=== PATIENT | male | born 1965 | race African-American/Black ===

== ENCOUNTER 2023-04-05 05:32 | Emergency (ER) | payer OTHER ==
[~2023-04-05] VITALS: Ht 182.9 cm; Wt 105.0 kg
[2023-04-05 05:51] VITALS: O2SAT 98
[2023-04-05 06:23] LABS: BASOPHILS % 0.7 % (0.0-2.0); EOSINOPHILS % 0.3 % (0.0-5.0); HEMATOCRIT. 49.8 % (42.0-52.0); HEMOGLOBIN. 16.5 g/dL (14.0-18.0); LYMPHOCYTES % 22.9 % (20.0-50.0); MEAN CORPUSCULAR HEMOGLOBIN 30.1 pg (28.0-32.0); MEAN CORPUSCULAR HGB CONC 33.1 g/dL (31.0-37.0); MONOCYTES % 14.9 % (2.0-8.0); NEUTROPHILS % 61.2 % (40.0-76.0); PLATELET 107 x1000/uL (130-400); RED BLOOD CELL COUNT 5.47 mill/uL (4.7-6.1); RED CELL DISTRIBUTION WIDTH 15.5 % (11.6-14.6); WHITE BLOOD COUNT 7.2 x1000/uL (4.5-11.0)
[2023-04-05 08:54] LABS: ALANINE AMINOTRANSFERASE 10 IU/L (10-49); ALBUMIN 4.3 g/dL (3.2-4.8); ASPARTATE AMINOTRANSFERASE 27 IU/L (<34); BILIRUBIN TOTAL 0.3 mg/dL (0.1-1.0); CALCIUM 9.3 mg/dL (8.7-10.4); CARBON DIOXIDE 20 mEq/L (21-32); CHLORIDE 100 mEq/L (98-107); CREATININE 2.7 mg/dL (0.6-1.3); GLUCOSE 188 mg/dL (70-105); POTASSIUM 3.5 mEq/L (3.5-5.1); PROTEIN TOTAL 9.3 g/dL (6.0-8.3); SODIUM 135 mEq/L (136-145); TROPONIN I HIGH SENSITIVITY 44 ng/L (3.0-53); UREA NITROGEN BLOOD 46 mg/dL (9-23)
[2023-04-05 10:08] VITALS: TEMP 98.1
[2023-04-05] MEDS ORDERED: SODIUM CHLORIDE 0.9% 1,000 ML IV ONE (10:45)
[2023-04-05] MEDS ORDERED: ASPIRIN 325MG EC TABLET PO ONE (10:45)
[2023-04-05 12:39] VITALS: BP 121/68; PULSE 68; RESP 19
== END 2023-04-05 12:49 | disposition short-term general hospital (02) ==
LOC: EDBD 05:32 → ER 05:32
DX: N17.9 Acute kidney failure, unspecified (principal); I10 Essential (primary) hypertension
CPT/HCPCS: 99285; 71045; 80053; 83880; 85025; 84484; 36415; 93005; J7030

== ENCOUNTER 2024-09-15 15:14 | Inpatient (IN) | payer OTHER ==
[~2024-09-15] VITALS: Ht 177.8 cm; Wt 90.7 kg
[2024-09-15] MEDS: SODIUM CHLORIDE 0.9% 1,000 ML IV ONE (16:05)
[2024-09-15] MEDS: MORPHINE SULFATE 4 MG/ML INJ (FOR IV/IM USE) IV STA (16:05)
[2024-09-15 16:26] LABS: BASOPHILS % 0.8 % (0.0-2.0); EOSINOPHILS % 0.3 % (0.0-5.0); HEMATOCRIT. 50.3 % (42.0-52.0); HEMOGLOBIN. 16.7 g/dL (14.0-18.0); LYMPHOCYTES % 13.9 % (20.0-50.0); MEAN PLATELET VOLUME 9.4 fl (7.4-10.4); MONOCYTES % 3.7 % (2.0-8.0); NEUTROPHILS % 81.3 % (40.0-76.0); PLATELET 193 x1000/uL (130-400); RED BLOOD CELL COUNT 5.64 mill/uL (4.7-6.1); RED CELL DISTRIBUTION WIDTH 14.1 % (11.6-14.6)
[2024-09-15 16:37] LABS: INR 1.1
[2024-09-15 16:42] LABS: CREATININE 1.9 mg/dL (0.6-1.3); ETHANOL BLOOD < 10 mg/dL (<10); UREA NITROGEN BLOOD 20 mg/dL (9-23)
[2024-09-15 16:46] LABS: TROPONIN I HIGH SENSITIVITY 63 ng/L (3.0-53)
[2024-09-15] MEDS: HYDRALAZINE 20MG/ML VIAL IV ONE (18:19)
[2024-09-15] MEDS: NITROGLYCERIN OINT 1GM/INCH UDPKT TD ONE (18:24)
[2024-09-15] MEDS: ASPIRIN 325MG TABLET PO ONE (20:03)
[2024-09-15] MEDS ORDERED: IPRATROPIUM/ALBUTEROL 0.5-3(2.5)MG/3ML NEB HHN PRN (20:15)
[2024-09-15] MEDS ORDERED: MAGNESIUM/ALUMINUM HYDROXIDE/SIMETHICONE 30ML UDC PO PRN (20:15)
[2024-09-15] MEDS ORDERED: ACETAMINOPHEN 325MG TABLET PO PRN ×2 (20:15)
[2024-09-15] MEDS ORDERED: ONDANSETRON HCL 4MG/2ML INJ IV PRN (20:15)
[2024-09-15] MEDS ORDERED: DOCUSATE SODIUM 100MG CAPSULE PO PRN (20:15)
[2024-09-15] MEDS ORDERED: GUAIFENESIN 200MG/10ML SUGAR FREE UDC PO PRN (20:15)
[2024-09-15] MEDS ORDERED: DIPHENHYDRAMINE 50MG/ML VIAL IV PRN (20:15)
[2024-09-15 20:30] VITALS: BP 149/62; PULSE 72; RESP 20; TEMP 37.1; O2SAT 98
[2024-09-15 21:06] LABS: TROPONIN I HIGH SENSITIVITY 164 ng/L (3.0-53)
[2024-09-15 21:16] LABS: PHOSPHORUS 3.3 mg/dL (2.5-4.9)
[2024-09-15] MEDS: AMLODIPINE 5MG TABLET PO SCH (22:26)
[2024-09-15 22:27] LABS: LACTIC ACID 2.1 mmol/L (0.4-2.0)
[2024-09-15] MEDS: SODIUM CHLORIDE 0.9% 1,000 ML IV SCH (22:29)
[2024-09-15 23:36] VITALS: BP 145/76; PULSE 80; RESP 18; TEMP 36.7
[2024-09-16] VITALS: BP 151/98; PULSE 89; RESP 19; TEMP 36.1; O2SAT 89
[2024-09-16 01:56] LABS: TROPONIN I HIGH SENSITIVITY 282 ng/L (3.0-53)
[2024-09-16 04:00] VITALS: BP 142/83; PULSE 78; RESP 19; TEMP 36.1; O2SAT 100
[2024-09-16 07:03] LABS: BASOPHILS % 0.6 % (0.0-2.0); EOSINOPHILS % 1.0 % (0.0-5.0); HEMATOCRIT. 45.0 % (42.0-52.0); HEMOGLOBIN. 15.0 g/dL (14.0-18.0); LYMPHOCYTES % 23.7 % (20.0-50.0); MEAN PLATELET VOLUME 9.7 fl (7.4-10.4); MONOCYTES % 8.2 % (2.0-8.0); NEUTROPHILS % 66.5 % (40.0-76.0); PLATELET 175 x1000/uL (130-400); RED BLOOD CELL COUNT 5.12 mill/uL (4.7-6.1); RED CELL DISTRIBUTION WIDTH 13.7 % (11.6-14.6)
[2024-09-16 07:21] LABS: CREATININE 1.4 mg/dL (0.6-1.3); TRIGLYCERIDE 81 mg/dL (0-150); UREA NITROGEN BLOOD 17 mg/dL (9-23)
[2024-09-16 07:22] LABS: LDL CHOLESTEROL 64 mg/dL (5-100)
[2024-09-16 07:23] LABS: T4 FREE 1.28 ng/dL (0.89-1.76)
[2024-09-16 08:00] VITALS: BP 164/72; PULSE 79; RESP 18; TEMP 36.5; O2SAT 99
[2024-09-16 08:50] LABS: TROPONIN I HIGH SENSITIVITY 321 ng/L (3.0-53)
[2024-09-16] MEDS: ASPIRIN 81MG TABLET PO SCH (09:13)
[2024-09-16 12:00] VITALS: BP 134/98; PULSE 84; RESP 18; TEMP 36.6; O2SAT 100
[2024-09-16 13:49] LABS: TROPONIN I HIGH SENSITIVITY 318 ng/L (3.0-53)
[2024-09-16 15:34] LABS: *AMPHETAMINES SCREEN URINE NEGATIVE (NEGATIVE); *BARBITURATES SCREEN URINE NEGATIVE (NEGATIVE); *BENZODIAZEPINES SCREEN URINE NEGATIVE (NEGATIVE); *COCAINE SCREEN URINE NEGATIVE (NEGATIVE)
[2024-09-16 15:35] LABS: CANNABINOID URINE SCREEN PRESUMPTIVE POSITIVE (NEGATIVE); ECSTASY MDMA SCREEN URINE NEGATIVE (NEGATIVE); METHADONE URINE SCREEN NEGATIVE (NEGATIVE); OPIATES URINE SCREEN PRESUMPTIVE POSITIVE (NEGATIVE); PHENCYCLIDINE URINE SCREEN NEGATIVE (NEGATIVE)
[2024-09-16 16:00] VITALS: BP_SYST 118; BP_SYST 138; BP_DIAS 74; BP_DIAS 84; PULSE 73; RESP 18; TEMP 36.8; O2SAT 100
[2024-09-16 16:54] LABS: CLARITY URINE CLOUDY (CLEAR); COLOR URINE DARK YELLOW (YELLOW); GLUCOSE URINE NEGATIVE (NEGATIVE); KETONES URINE 2+ (NEGATIVE); LEUKOCYTE ESTERASE URINE 3+ (NEGATIVE); NITRITE URINE NEGATIVE (NEGATIVE); OCCULT BLOOD URINE NEGATIVE (NEGATIVE); PH URINE 5.5 (4.5-8.0); PROTEIN URINE 1+ (NEGATIVE); SPECIFIC GRAVITY URINE 1.025 (1.005-1.030); UROBILINOGEN URINE 1.0 E.U./dL (0.2-1.0)
[2024-09-16 17:12] LABS: BACTERIA URINE 2+; RBC URINE 0-2 /hpf (0-2); SQUAMOUS EPITHELIAL CELL URINE 1+ /lpf (RARE/1+)
[2024-09-16 20:00] VITALS: BP 136/81; PULSE 78; RESP 18; TEMP 36.4; O2SAT 99
[2024-09-17] VITALS: BP 132/82; PULSE 72; RESP 18; TEMP 36.2; O2SAT 99
[2024-09-17 04:00] VITALS: BP 130/87; PULSE 62; RESP 18; TEMP 36.4; O2SAT 99
[2024-09-17] MEDS: PANTOPRAZOLE SODIUM 40 MG/VIAL IV SCH (08:35)
[2024-09-17] MEDS: TAMSULOSIN HCL 0.4MG SR CAPSULE PO SCH (08:51)
[2024-09-17 08:52] VITALS: BP 166/105; PULSE 63; RESP 20; TEMP 37.3; O2SAT 98
[2024-09-17 12:00] VITALS: BP 118/85; PULSE 74; RESP 18; TEMP 36.7; O2SAT 97
[2024-09-17] MEDS ORDERED: REGADENOSON 0.4 MG/5 ML IV SCH (12:00)
[2024-09-17 16:00] VITALS: BP 137/96; PULSE 72; RESP 18; TEMP 36.8; O2SAT 98
[2024-09-17] MEDS: ENOXAPARIN 40MG/0.4ML SYR SUBCUT SCH (18:01)
[2024-09-17 18:47] LABS: BASOPHILS % 0.9 % (0.0-2.0); EOSINOPHILS % 2.6 % (0.0-5.0); HEMATOCRIT. 40.8 % (42.0-52.0); HEMOGLOBIN. 13.7 g/dL (14.0-18.0); LYMPHOCYTES % 39.0 % (20.0-50.0); MEAN PLATELET VOLUME 9.7 fl (7.4-10.4); MONOCYTES % 11.8 % (2.0-8.0); NEUTROPHILS % 45.7 % (40.0-76.0); PLATELET 156 x1000/uL (130-400); RED BLOOD CELL COUNT 4.67 mill/uL (4.7-6.1); RED CELL DISTRIBUTION WIDTH 14.1 % (11.6-14.6)
[2024-09-17 19:01] LABS: CREATININE 1.4 mg/dL (0.6-1.3); UREA NITROGEN BLOOD 9 mg/dL (9-23)
[2024-09-17 19:21] LABS: TROPONIN I HIGH SENSITIVITY 113 ng/L (3.0-53)
[2024-09-17 20:00] VITALS: BP 134/95; PULSE 79; RESP 20; TEMP 37; O2SAT 95
[2024-09-18] VITALS: BP 144/99; PULSE 82; RESP 20; TEMP 37.1; O2SAT 100
[2024-09-18 04:00] VITALS: BP 138/90; PULSE 72; RESP 20; TEMP 36.9; O2SAT 99
[2024-09-18] MEDS ORDERED: REGADENOSON 0.4 MG/5 ML IV ONE (07:51)
[2024-09-18 08:00] VITALS: BP 157/119; PULSE 63; RESP 20; TEMP 35.9; O2SAT 99
[2024-09-18 08:36] LABS: BASOPHILS % 0.9 % (0.0-2.0); EOSINOPHILS % 3.6 % (0.0-5.0); HEMATOCRIT. 40.8 % (42.0-52.0); HEMOGLOBIN. 13.8 g/dL (14.0-18.0); LYMPHOCYTES % 46.3 % (20.0-50.0); MEAN PLATELET VOLUME 9.4 fl (7.4-10.4); MONOCYTES % 11.3 % (2.0-8.0); NEUTROPHILS % 37.9 % (40.0-76.0); PLATELET 151 x1000/uL (130-400); RED BLOOD CELL COUNT 4.67 mill/uL (4.7-6.1); RED CELL DISTRIBUTION WIDTH 14.1 % (11.6-14.6)
[2024-09-18 08:59] LABS: CREATININE 1.2 mg/dL (0.6-1.3)
[2024-09-18 09:00] LABS: UREA NITROGEN BLOOD 10 mg/dL (9-23)
[2024-09-18 12:00] VITALS: BP 160/106; PULSE 87; RESP 18; TEMP 36.4; O2SAT 99
[2024-09-18] MEDS ORDERED: TAMS-54 PO (13:52)
[2024-09-18] MEDS ORDERED: COR3 PO (13:52)
[2024-09-18] MEDS ORDERED: LOSA25TA26 PO (13:52)
[2024-09-18] MEDS ORDERED: SPIR25TA6 PO (13:52)
[2024-09-18] MEDS ORDERED: FURO20TA4 PO (13:52)
[2024-09-18] MEDS ORDERED: ASPI-1160 PO (13:52)
[2024-09-18] MEDS ORDERED: EMPA10TA PO (13:53)
[2024-09-18] MEDS: FUROSEMIDE 20MG TABLET PO SCH (14:02)
[2024-09-18 16:00] VITALS: BP 128/91; PULSE 86; RESP 18; TEMP 36.5; O2SAT 98
[2024-09-18 16:55] VITALS: BP 133/68; PULSE 63; TEMP 97.6; O2SAT 96
[2024-09-18] MEDS ORDERED: CARVEDILOL 3.125 MG TABLET PO SCH (21:00)
== END 2024-09-18 18:22 | disposition home or self-care (01) | DRG 124 ==
LOC: ER 15:14 → EDBEDREQ 19:45 → ENRESERV 20:16 → 8WST 21:15
PROVIDERS: ADMIT Hospitalist; ATTEND Hospitalist
DX: S00.11XA Contusion of right eyelid and periocular area, initial encounter (principal); I21.A1 Myocardial infarction type 2; E87.20 Acidosis, unspecified; N17.9 Acute kidney failure, unspecified; I50.20 Unspecified systolic (congestive) heart failure; I42.9 Cardiomyopathy, unspecified; W18.39XA Other fall on same level, initial encounter; J42 Unspecified chronic bronchitis; I11.0 Hypertensive heart disease with heart failure; N40.1 Benign prostatic hyperplasia with lower urinary tract symptoms; Z79.82 Long term (current) use of aspirin; Z79.899 Other long term (current) drug therapy; Y93.89 Activity, other specified; Y99.8 Other external cause status; R39.15 Urgency of urination
CPT/HCPCS: 36415; 70486; 71045; 76770; 78452; 80048; 80061; 80305; 80320; 81003; 82040; 82550; 83036; 83540; 83550; 83605; 83735; 83880; 84100; 84145; 84439; 84443; 84484; 85025; 85044; 86850; 86900; 93005; 93017; 93306; 93880; 96361; 96374; 96375; 99291; A4606; A9500; J0360; J1650; J2270; J2470; J2785; J7030; G0480